=== PATIENT | female | born 1945 | race Caucasian/White ===

== ENCOUNTER 2022-09-18 16:45 | Observation (INO) ==
[2022-09-18 18:01] LABS: Basophils % 0.5 % (0.0-0.8); Eosinophils % 0.7 % (0.00-10.9); Hematocrit 34.7 VOL% (35.7-47.0); Hemoglobin 10.9 GM/DL (12.0-16.0); Immature Granulocytes % 0.2 %; Immature Granulocytes Absolute 0.01 #; Lymphocytes # 1.5 10*3/uL (1.4-4.0); Lymphocytes % 27.9 % (21.3-54.2); Mean Corpuscular HGB Conc 31.4 GM/DL (32-36); Mean Corpuscular Volume 93.3 FL (87-102); Mean Platelet Volume 9.4 FL (9.6-12.0); Monocytes # 1.2 10*3/uL (0.11-0.8); Neutrophils % 48.7 % (38.7-73.9); Platelet Count 170 T/CUMM (130-400); Red Blood Count 3.72 MC/CUMM (3.8-5.5); Red Cell Distribution Width 14.1 % (9.3-17.3); White Blood Count 5.5 T/CUMM (4-12)
[2022-09-18 18:12] LABS: Hyaline Casts,Urine 14 /LPF (0-3); Mucus,Urine Occasional /LPF (Occasional); RBC,Urine 1 /HPF (0-4); Squamous Epithelial Cell,Urine Occasional /HPF (0-10)
[2022-09-18 18:13] LABS: Bilirubin,Urine Negative (Negative); Blood, Urine Trace mg/dL (Negative); Glucose,Urine (UA) Negative (Negative); Ketones,Urine Negative (Negative); Nitrite,Urine Negative (Negative); Protein,Urine Negative (Negative); Urine Appearance Clear (Clear); Urine Color Yellow (Yellow); Urine Specific Gravity 1.025 (1.001-1.035); Urine Urobilinogen 0.2 eU/dL (<2.0); Urine pH 5.5 (4.5-8.0)
[2022-09-18 18:14] LABS: INR 1.2; Partial Thromboplastin Time 44.4 SECS (23.7-32.9)
[2022-09-18 18:25] LABS: Alanine Aminotransferase 15 U/L (13-56); Albumin 3.3 G/DL (3.4-5.0); Alkaline Phosphatase 40 U/L (45-117); Aspartate Amino Transferase 14 U/L (0-37); Bilirubin,Total < 0.39 MG/DL (0.20-1.00); Blood Urea Nitrogen 22 MG/DL (7-18); Calcium 8.6 MG/DL (8.5-10.1); Carbon Dioxide 29 MMOL/L (21-32); Chloride 98 MMOL/L (98-107); Glucose 66 MG/DL (74-106); Osmolality,Calculated 266.4 MOS/KG (273-304); Potassium 4.8 MMOL/L (3.5-5.1); Sodium 133 MMOL/L (136-145); Total Protein 7.5 G/DL (6.4-8.2)
[2022-09-18 18:32] LABS: Eosinophils 2 % (0-10); Lymphocytes 25 % (20-55); Platelet Estimate Adequate; Total Cells Counted 100
[2022-09-18 18:33] LABS: Hypochromia Slight
[2022-09-18] MEDS ORDERED: ONDANSETRON 4 MG/2 ML VIAL IV PRN (20:23)
[2022-09-18] MEDS ORDERED: ZALEPLON 5 MG CAPSULE PO PRN (20:23)
[2022-09-18] MEDS ORDERED: ACETAMINOPHEN 325 MG TABLET PO PRN (20:23)
[2022-09-18] MEDS ORDERED: MONTELUKAST 10 MG TABLET PO SCH (21:00)
[2022-09-18] MEDS ORDERED: AMIODARONE 200 MG TABLET PO SCH (21:00)
[2022-09-18] MEDS ORDERED: AMITRIPTYLINE 25 MG TABLET PO SCH (21:00)
[2022-09-18] MEDS: SODIUM CHLORIDE 0.45% 1,000 ML IV SCH (21:30)
[2022-09-18] MEDS: INSULIN REGULAR 100 UNIT/ML SUBCUT SCH (23:35)
[2022-09-19 00:40] LABS: Basophils % 0.7 % (0.0-0.8); Eosinophils % 0.6 % (0.00-10.9); Hematocrit 34.2 VOL% (35.7-47.0); Hemoglobin 10.7 GM/DL (12.0-16.0); Immature Granulocytes % 0.6 %; Immature Granulocytes Absolute 0.03 #; Lymphocytes # 1.7 10*3/uL (1.4-4.0); Lymphocytes % 30.8 % (21.3-54.2); Mean Corpuscular HGB Conc 31.3 GM/DL (32-36); Mean Corpuscular Volume 93.2 FL (87-102); Mean Platelet Volume 9.3 FL (9.6-12.0); Monocytes # 1.1 10*3/uL (0.11-0.8); Monocytes % 20.9 % (1.7-12.7); Neutrophils % 46.4 % (38.7-73.9); Platelet Count 164 T/CUMM (130-400); Red Blood Count 3.67 MC/CUMM (3.8-5.5); White Blood Count 5.5 T/CUMM (4-12)
[2022-09-19 01:03] LABS: Calcium 8.3 MG/DL (8.5-10.1); Osmolality,Calculated 265.8 MOS/KG (273-304); Potassium 4.2 MMOL/L (3.5-5.1); Thyroid Stimulating Hormone 3.53 uIU/ml (0.358-3.74)
[2022-09-19 01:10] LABS: Eosinophils 1 % (0-10); Lymphocytes 22 % (20-55); Platelet Estimate Adequate; Total Cells Counted 100
[2022-09-19 01:12] LABS: Hypochromia Slight
[2022-09-19] MEDS ORDERED: LEVOTHYROXINE 125 MCG TABLET PO SCH (06:00)
[2022-09-19] MEDS: INSULIN REGULAR 100 UNIT/ML SUBCUT SCH ×2 (08:46→14:41)
[2022-09-19] MEDS: SODIUM CHLORIDE 0.45% 1,000 ML IV SCH (08:52)
[2022-09-19] MEDS ORDERED: DIVALPROEX ER 500 MG TABLET PO SCH (09:00)
[2022-09-19] MEDS ORDERED: PANTOPRAZOLE 40 MG TABLET PO SCH (09:00)
[2022-09-19 14:48] VITALS: BP 122/70
[2022-09-25] MEDS ORDERED: ERGOCALCIFEROL 50,000 UNIT CAPSULE PO SCH (09:00)
== END 2022-09-19 14:51 | disposition home health service (06) ==
LOC: EDUNIT# → EDBD → N.EDINP 16:45 → N.ED 16:45 → N.EDINP 22:40 → N.2W 23:10
PROVIDERS: ADMIT Internal Medicine; ATTEND Internal Medicine